=== PATIENT | male | born 1975 | race Two or more races ===

== ENCOUNTER 2018-12-30 09:42 | Emergency (ER) | payer BC ==
[~2018-12-30] VITALS: Ht 172.7 cm; Wt 101.2 kg
--- OUTSIDE RECORDS SUMMARY | 2018-12-30 09:45 | XMS REPORT | Clinical Summary ---
Author Author [facility] Organization [facility] Address Unknown Phone Unavailable Care Team Providers Care [employer] Coordinator Name Role Phone Karly Carrillo MD PCP Allergies No Known Allergies Medications End Date Status Medication Sig Dispensed Refills Start Date 04/29/2018 ergocalciferol (VITAMIN Take 1 4 capsule 2 D2) 50,000 unit capsule capsule 8 (50,000 Units total) by mouth once a week for 12 doses. Active Problems Not on file Encounters Care Team Description Date Type Specialty Karly Carrillo MD 02/10/2018 Orders Only Internal Medicine Karly Carrillo MD Annual physical exam 02/07/2018 Lab Lab Karly Carrillo MD Annual physical exam (Primary Dx) 02/07/2018 Office Visit Internal Medicine after 12/29/2017 Family History Medical History Relation Name Comments Heart disease Father Avarachan Diabetes Mother Zulma Hypertension Mother Zulma Relation Name Status Comments Father Elisabet Mother Zulma Social History Date Tobacco Use Types Packs/Day Years Used Never Smoker Smokeless Tobacco: Never Used Tobacco Cessation: Counseling Given: No Alcohol Use Drinks/Week oz/Week Comments Yes 3-4 Glasses per week of wine Sex Assigned at Date Recorded Not on file Industry Job Start Date Occupation Not on file Not on file Not on file Travel End Travel History Travel Start No recent travel history available. Last Filed Vital Signs Time Taken Vital Sign Reading 02/07/2018 10:29 AM CDT Blood Pressure 104/69 02/07/2018 10:29 AM CDT Pulse 69 02/07/2018 10:29 AM CDT Temperature 36.6 C (97.9 F) 02/07/2018 10:29 AM CDT Respiratory Rate 16 02/07/2018 10:29 AM CDT Oxygen Saturation 98% - Inhaled Oxygen - Concentration 02/07/2018 10:29 AM CDT Weight 103 kg (227 lb) 02/07/2018 10:29 AM CDT Height 172.7 cm (5' 8") 02/07/2018 10:29 AM CDT Body Mass Index 34.52 Plan of Treatment Health Maintenance Due Date Last Done Comments INFLUENZA VACCINE 02/26/2019 Procedures Comments Procedure Name Priority Date/Time Associated Diagnosis VITAMIN B12 AND FOLATE Routine 02/07/2018 Annual physical exam 11:49 AM CDT MAGNESIUM LEVEL Routine 02/07/2018 Annual physical exam 11:49 AM CDT VITAMIN D 25 HYDROXY Routine 02/07/2018 Annual physical exam LEVEL 11:49 AM CDT HEMOGLOBIN A1C Routine 02/07/2018 Annual physical exam 11:49 AM CDT LIPID PANEL Routine 02/07/2018 Annual physical exam 11:49 AM CDT T4, FREE Routine 02/07/2018 Annual physical exam 11:49 AM CDT THYROID STIMULATING Routine 02/07/2018 Annual physical exam HORMONE 11:49 AM CDT CBC WITH PLATELET AND Routine 02/07/2018 Annual physical exam DIFFERENTIAL 11:49 AM CDT COMPREHENSIVE METABOLIC Routine 02/07/2018 Annual physical exam PANEL 11:49 AM CDT ECG 12-LEAD Routine 02/07/2018 Annual physical exam 10:43 AM CDT after 12/29/2017 Results * Vitamin B12 and Folate (02/07/2018 11:49 AM CDT) [facility] Vitamin B12 341 200 - 1,100 pg/mL [facility] Comment: DIAGNOSTICS Please Note: Although the [place] reference range for vitamin B12 is 200-1100 pg/mL, it has been reported that between 5 and 10% of patients with values between 200 and 400 pg/mL may experience neuropsychiatric and hematologic abnormalities due to occult B12 deficiency; less than 1% of patients with values above 400 pg/mL will have symptoms. Folate 12.7 ng/mL [facility] Comment: DIAGNOSTICS [place] Reference Range Low: <3.4 Borderline:3.4-5.4 Normal:>5.4 Specimen Blood Resulting Agency Comment Performing Organization Information: Site ID: CAR Name: [facility] Address: [address] [place] [phone] Director: Elsa Coelho Performing Organization Address [facility] Phone Number [facility] [address] [address] * Vitamin D 25 hydroxy level (02/07/2018 11:49 AM CDT) Pathologist [facility] Vitamin D, 28 (L) 30 - 100 ng/mL [facility] 25-hydroxy Comment: DIAGNOSTICS Vitamin D [place] Status 25-OH Vitamin D: Deficiency: <20 ng/mL Insufficiency: 20 - 29 ng/mL Optimal: > or=30 ng/mL For 25-OH Vitamin D testing on patients on D2-supplementation and patients for whom quantitation of D2 and D3 fractions is required, the QuestAssureD(TM) 25-OH VIT D, (D2,D3), LC/MS/MS is recommended: order code 88416 (patients >2yrs). For more information on this test, go to: http://education.[employer].StyleUp/faq/BSN665 (This link is being provided for informational/educational purposes only.) Specimen Blood Resulting Agency Comment Performing Organization Information: Site ID: CAR Name: [facility] Address: [address] [place] [phone] Director: Elsa Coelho Performing Organization Address [facility] Phone Number [facility] [address] [address] * CBC with platelet and differential (02/07/2018 11:49 AM CDT) [facility] WBC 5.9 3.8 - 10.8 [facility] Thousand/uL [facility] [place] RBC 5.08 4.20 - 5.80 [facility] Million/uL DIAGNOSTICS [place] HGB 15.6 13.2 - 17.1 g/dL [employer] [facility] HCT 46.3 38.5 - 50.0 % [facility] MCV 91.1 80.0 - 100.0 fL [facility] MCH 30.7 27.0 - 33.0 pg [employer] [facility] MCHC 33.7 32.0 - 36.0 g/dL [employer] [place] RDW 12.5 11.0 - 15.0 % [employer] [facility] Platelet count 239 140 - 400 [facility] Thousand/uL [facility] MPV 10.6 7.5 - 12.5 fL [facility]NOSTICS [place] Neutrophils, 2,820 1,500 - 7,800 [facility] absolute cells/uL DIAGNOSTICS [place] Lymphocytes, 2,331 850 - 3,900 cells/uL [facility] absolute [facility]AGNOSTICS [place] Monocytes, 555 200 - 950 cells/uL [facility] absolute [facility]STICS [place] Eosinophils, 153 15 - 500 cells/uL [facility] absolute [facility]STICS [place] Basophils, 41 0 - 200 cells/uL [facility] absolute DIAGNOSTICS [place] Neutrophils 47.8 % [employer] [facility] Lymphocytes 39.5 % [employer] [employer] [place] Monocytes 9.4 % [facility] [place] Eosinophils 2.6 % [employer] [place] Basophils + RC 0.7 % [employer] [place] Specimen Blood Resulting Agency Comment Performing Organization Information: Site ID: RGA Name: [facility] Address: [address] [place] [phone] Director: Elsa Coelho Performing Organization Address [facility] [place] [address] * Thyroid stimulating hormone (02/07/2018 11:49 AM CDT) Pathologist [facility] TSH 1.40 0.40 - 4.50 mIU/L [facility] [place] Specimen Blood Resulting Agency Comment Performing Organization Information: Site ID: A Name: [facility] Address: [address] [place] [phone] Director: Elsa Coelho Performing Organization Address [facility] [place] [address] * T4, free (02/07/2018 11:49 AM CDT) Pathologist [facility] T4, free 1.2 0.8 - 1.8 ng/dL [employer] [place] Specimen Blood Resulting Agency Comment Performing Organization Information: Site ID: RGA Name: [facility] Address: [address] [place] [phone] Director: Elsa Coelho Performing Organization Address [facility] [place] [address] * Magnesium level (02/07/2018 11:49 AM CDT) Magnesium 2.0 1.5 - 2.5 mg/dL [facility] Specimen Blood Resulting Agency Comment Performing Organization Information: Site ID: CAR Name: [facility] Address: [address] [place] [phone] Director: Elsa Coelho Performing Organization Address [facility] [place] [address] * Hemoglobin A1c (02/07/2018 11:49 AM CDT) Hemoglobin A1C 6.4 (H) <5.7 % of total Hgb [facility] Comment: DIAGNOSTICS For someone without known [place] diabetes, a hemoglobin A1c value between 5.7% and 6.4% is consistent with prediabetes and should be confirmed with a follow-up test. For someone with known diabetes, a value <7% indicates that their diabetes is well controlled. A1c targets should be individualized based on duration of diabetes, age, comorbid conditions, and other considerations. This assay result is consistent with an increased risk of diabetes. Currently, no consensus exists regarding use of hemoglobin A1c for diagnosis of diabetes for children. Specimen Blood Resulting Agency Comment Performing Organization Information: Site ID: CAR Name: [facility] Address: [address] [place] [phone] Director: Elsa Coelho Performing Organization Address [facility] [place] [address] * Lipid panel (02/07/2018 11:49 AM CDT) Cholesterol, 241 (H) <200 mg/dL [facility] DIAGNOSTICS [place] HDL cholesterol 62 >40 mg/dL [facility] [place] Triglycerides 196 (H) <150 mg/dL [facility] [place] LDL cholesterol 145 (H) mg/dL (calc) [facility] calculated Comment: DIAGNOSTICS Reference range: <100 [place] Desirable range <100 mg/dL for primary prevention; <70 mg/dL for patients with CHD or diabetic patients with > or=2 CHD risk factors. LDL-C is now calculated using the Helder-Patricio calculation, which is a validated novel method providing better accuracy than the Friedewald equation in the estimation of LDL-C. Helder SS et al. JIM. 2013;310(19): 6485-7677 (http://education.[employer] Motion.StyleUp/faq/HGF565) Cholesterol/HDL 3.9 <5.0 (calc) [facility] ratio DIAGNOSTICS [place] Non-HDL 179 (H) <130 mg/dL (calc) [facility] cholesterol Comment: DIAGNOSTICS For patients with diabetes [place] plus 1 major ASCVD risk factor, treating to a non-HDL-C goal of <100 mg/dL (LDL-C of <70 mg/dL) is considered a therapeutic option. Specimen Blood Resulting Agency Comment Performing Organization Information: Site ID: RGA Name: [facility] Address: [address] [place] [phone] Director: Elsa Coelho Performing Organization Address City/State/Zipcode Phone Number [facility] [place] [address] [place] [address] * Comprehensive metabolic panel (02/07/2018 11:49 AM CDT) Pathologist [facility] Glucose 103 (H) 65 - 99 mg/dL [facility] Comment: DIAGNOSTICS Fasting [place] reference interval For someone without known diabetes, a glucose value between 100 and 125 mg/dL is consistent with prediabetes and should be confirmed with a follow-up test. BUN, whole 13 7 - 25 mg/dL [facility] blood DIAGNOSTICS [place] Creatinine 0.93 0.60 - 1.35 mg/dL [facility] [place] EGFR Non-Afr. 102 > OR=60 [facility] [place] mL/min/1.73m2 DIAGNOSTICS [place] EGFR 119 > OR=60 [facility] [place] mL/min/1.73m2 [facility] BUN/creatinine NOT APPLICABLE 6 - 22 (calc) [facility] ratio DIAGNOSTICS [place] Sodium 140 135 - 146 mmol/L [facility] [place] Potassium 4.2 3.5 - 5.3 mmol/L [facility] [place] Chloride 103 98 - 110 mmol/L [facility] [place] CO2 30 20 - 31 mmol/L [facility] [place] Calcium 9.4 8.6 - 10.3 mg/dL [facility] [place] Protein 7.4 6.1 - 8.1 g/dL [facility] [place] Albumin, S 4.7 3.6 - 5.1 g/dL [facility] [place] Globulin, total 2.7 1.9 - 3.7 g/dL [facility] (calc) DIAGNOSTICS [place] Albumin/globuli 1.7 1.0 - 2.5 (calc) [facility] n ratio DIAGNOSTICS [place] Total bilirubin 0.8 0.2 - 1.2 mg/dL [facility] [place] Alkaline 60 40 - 115 U/L [facility] phosphatase DIAGNOSTICS [place] AST 50 (H) 10 - 40 U/L [facility] [place] ALT 122 (H) 9 - 46 U/L [facility] [place] Specimen Blood Resulting Agency Comment Performing Organization Information: Site ID: RGA Name: [facility] Address: [address] [place] [phone] Director: Elsa Coelho Performing Organization Address [facility] Phone Number [facility] [address] [address] * ECG 12 lead (02/07/2018 10:43 AM CDT) Ventricular 67 [facility] rate Atrial rate 67 [facility] MI interval 182 [facility] QRSD interval 90 [facility] QT interval 378 [facility] QTC interval 399 [facility] P axis 1 32 [facility] QRS axis 1 -5 [facility] T wave axis -5 [facility] EKG impression Normal sinus [facility] rhythm-Nonspecific T wave abnormality-Abnormal ECG-No previous ECGs available- Specimen Performing Organization Address [facility] Phone Number [facility] MUSE [address] [place] [address] after 12/29/2017 Advance Directives Patient has advance care planning documents on file. For more information, eduardo e contact: Jack Galaviz [address] [place] [address]
[2018-12-30] MEDS ORDERED: KETOROLAC TROMETHAMINE 30 MG/ML VIAL IV STA (10:04)
[2018-12-30] MEDS ORDERED: ASPIRIN 81 MG CHEW TAB PO ONE (10:15)
--- NOTE | 2018-12-30 10:38 | Diagnostic Imaging Report ---
Examination: Single AP view of the chest. COMPARISON: None. INDICATION: Chest tightness DISCUSSION: Lines/tubes: None. Lungs: The lungs are well inflated and clear. There is no evidence of pneumonia or pulmonary edema. Pleura: There is no pleural effusion or pneumothorax. Heart and mediastinum: The heart and the mediastinum are unremarkable. Bones and soft tissues: No acute bony abnormalities. IMPRESSION: 1. No acute cardiopulmonary abnormalities. Signed by: Dr. Edwardo Zapata M.D. on 12/30/2018 10:35 AM
[2018-12-30 10:45] LABS: BASOPHILS % 0.8 % (0.0-1.0); EOSINOPHILS # (AUTO) 0.1 (0.0-0.4); EOSINOPHILS % 2.2 % (0.0-6.0); HEMATOCRIT 45.7 % (38.2-49.6); HEMOGLOBIN 15.7 g/dL (14.0-18.0); LYMPHOCYTES # (AUTO) 1.8 (1.0-3.2); LYMPHOCYTES % 36.9 % (18.0-39.1); MEAN CORPUSCULAR HEMOGLOBIN 31.1 pg (28-32); MEAN CORPUSCULAR HGB CONC 34.4 g/dL (31-35); MEAN CORPUSCULAR VOLUME 90.5 fL (81-99); MONOCYTES # (AUTO) 0.5 (0.2-0.8); MONOCYTES % 10.1 % (4.4-11.3); NEUTROPHILS # (AUTO) 2.5 (2.1-6.9); NEUTROPHILS % 49.8 % (38.7-80.0); PLATELET COUNT 212 x10e3/uL (140-360); RED BLOOD COUNT 5.05 x10e6/uL (4.3-5.7); RED CELL DISTRIBUTION WIDTH 12.6 % (11.7-14.4)
[2018-12-30 10:50] LABS: INR 0.91; PROTHROMBIN TIME 12.7 seconds (11.9-14.5)
[2018-12-30 10:51] LABS: PARTIAL THROMBOPLASTIN TIME 28.8 seconds (23.8-35.5)
[2018-12-30 11:57] LABS: ALANINE AMINOTRANSFERASE 166 IU/L (0-55); ALBUMIN 4.5 g/dL (3.5-5.0); ALBUMIN/GLOBULIN RATIO 1.4 (0.8-2.0); ALKALINE PHOSPHATASE 59 IU/L (40-150); ANION GAP 13.7 mmol/L (8-16); BLOOD UREA NITROGEN 14 mg/dL (7-26); BUN/CREATININE RATIO 16 (6-25); CALCIUM 10.1 mg/dL (8.4-10.2); CARBON DIOXIDE 25 mmol/L (22-29); CHLORIDE 103 mmol/L (98-107); CREATINE KINASE 319 IU/L (30-200); EST GLOMERULAR FILTRATION RATE > 60 ML/MIN (60-); GLUCOSE 129 mg/dL (74-118); POTASSIUM 3.7 mmol/L (3.5-5.1); SODIUM 138 mmol/L (136-145)
== END 2018-12-30 12:21 | disposition home or self-care (01) ==
LOC: ER 09:42
DX: R07.89 Other chest pain (principal); R73.03 Prediabetes; Z79.84 Long term (current) use of oral hypoglycemic drugs; Z82.49 Family history of ischemic heart disease and other diseases of the circulatory system
CPT/HCPCS: 36415; 71045; 80053; 82550; 82553; 84484; 85025; 85610; 85730; 93005; 99284; J1885

== ENCOUNTER → 2019-01-16 | Outpatient (CLI) | payer BC | LOC: NM 09:16 | PROVIDERS: ATTEND Internal Medicine | DX: R07.9 Chest pain, unspecified (principal) | CPT/HCPCS: 78452; 93017; 93306; A9502 ==

== ENCOUNTER → 2019-01-23 | Outpatient (CLI) | payer BC ==
[~2019-01-23] MED LIST: IOPAMIDOL 370 MG/ML 200 ML INFUS..BTL INJ ONE; METOPROLOL TARTRATE INJ 1 MG/ML VIAL ONE; NITROGLYCERIN 0.4 MG SUBL ONE; SODIUM CHLORIDE 0.9% 100 ML 100 ML ONE
[2019-01-23 09:11] LABS: BLOOD UREA NITROGEN 17 mg/dL (7-26); BUN/CREATININE RATIO 16 (6-25); CREATININE, SERUM 1.06 mg/dL (0.72-1.25); EST GLOMERULAR FILTRATION RATE > 60 ML/MIN (60-)
--- NOTE | 2019-01-23 12:57 | Diagnostic Imaging Report ---
EXAM: CALCIUM SCORE AND CORONARY CTA INDICATION: ^[id number] ^1040 ^CHEST PAIN COMPARISON: None. TECHNIQUE: Multi-detector CT technology was employed (64 MDCT VoCare). Minimal slice thickness was performed following the intravenous administration of contrast material. The patient was premedicated with 2.5 mg i.v. metoprolol and 0.4 mg sublingual nitroglycerin for heart rate control and coronary dilation, respectively. IV CONTRAST: 100 mL of Isovue-370 ORAL CONTRAST: None COMPLICATIONS: None RADIATION DOSE: Total DLP: 1491.6 mGy*cm Estimated effective dose: (DLP x 0.015 x size factor) mSv CTDIvol has been reviewed. It is below the limits set by the Radiation Protocol Committee (RPC). For optimization of anatomic evaluation, multiplanar reconstruction, maximum intensity projections, and advanced 3-D off-line postprocessing were performed on a dedicated stand-alone workstation under the direct supervision of the interpreting physician. QUALITY: Excellent FINDINGS: CALCIUM SCORE: The observed Agatston Calcium Score of 0 is at percentile 25% for subjects of the same age and gender who are free of clinical cardiovascular disease and treated diabetes. The Agatston score for each vessel is as follows: LM: 0 LAD: 0 LCx: 0 RCA: 0 DISTRIBUTION OF THE CALCIFIED PLAQUES: No identifiable calcified plaques in the coronary arteries. CORONARY ANATOMY: There is normal origin of the coronary arteries. Left Main Coronary Artery: The left main is normal sized vessel that trifurcates into the LAD, ramus intermedius and circumflex. There is no evidence of atherosclerotic changes or stenotic disease. Left Anterior Descending Coronary Artery: The LAD is a normal size vessel that wraps around the apex. It gives rise to 2 acute diagonal branches. There is no evidence of atherosclerotic changes or stenotic disease. Ramus intermedius: The Ramus intermedius is a normal size vessel that extends along the lateral wall of the left ventricle. There is no evidence of atherosclerotic changes or stenotic disease. Left Circumflex Coronary Artery: The LCX is a normal size vessel, which is non-dominant. It gives rise to 2 obtuse marginal branches. There is no evidence of atherosclerotic changes or stenotic disease. Right Coronary Artery: The RCA is a normal size vessel, which is dominant. It gives rise to a conus branch, AV nelson branch, and 2 acute marginal branches. In its distal segment it bifurcates into the PDA and PV branch. There is no evidence of atherosclerotic changes or stenotic disease. CARDIAC MORPHOLOGY AND FUNCTION: The right and left atria and ventricles are morphologically normal. Small pericardial effusion. LIMITED CHEST: Limited views of the visualized chest show no abnormality within chest wall and mediastinum. No mediastinal lymphadenopathy. Linear scarring in the left lower lobe. The visualized portions of the ascending and descending thoracic aorta are of normal size. Indeterminate 3 mm focal round calcification between the medial aspect of the right hemidiaphragm and the base of the heart. LIMITED ABDOMEN: Diffuse hepatic steatosis. BONES: No acute osseous abnormalities. IMPRESSION: 1. Total Agatston Calcium Score: 0 that corresponds to percentile 25%. 2. Normal coronary anatomy. 3. No atherosclerotic changes or stenotic disease. CAD-CUCO: 0 Reference: http://c.DGSE.com/sites/scct.site-[email or web address]/resource/resmgr/Docs/JCCT_Guidelines_ AD_RADS.pdf 4. Small indeterminate calcification between the medial right hemidiaphragm and base of the right ventricle. Signed by: Dr. Gail Scott M.D. on 01/23/2019 12:53 PM
== END ==
LOC: CT 08:15
PROVIDERS: ATTEND Internal Medicine
DX: R07.9 Chest pain, unspecified (principal)
CPT/HCPCS: 36415; 75574; 82565; 84520; Q9967

== ENCOUNTER 2019-10-27 05:03 | Emergency (ER) | payer BC ==
[~2019-10-27] VITALS: Ht 172.7 cm; Wt 101.6 kg
--- OUTSIDE RECORDS SUMMARY | 2019-10-27 05:06 | XMS REPORT ---
[facility] Address Unknown Phone Unavailable Care Team Providers Care Roll Forming Machine Set Up Mechanic Name Role Phone Doug BARTHOLOMEW Unavailable Unavailable Jeovanny TUCKER Unavailable Unavailable Problems This patient has no known problems. Allergies, Adverse Reactions, Alerts This patient has no known allergies or adverse reactions. Medications This patient has no known medications. Results Test Description Test Time Test Comments Text Results Atomic Results Result Comments ECHO COMPLETE (ECHOCARDIOGRAM) 2019-02-04 19:19:00 [place] [address] Patient Name : TAY STARR MR #: [id number] : 1975 Age/Sex: 43/M Adm Physician : LEO BARTHOLOMEW MD Admit Date : 01/16/19 Location : [place] Room/Bed : REPORT: Myoview Stress Test DATE OF STUDY: 01/16/2019 10:07:00 PROCEDURE TITLE: Rest/stress single isotope SPECT imaging with exercise stress and gated SPECT imaging. DESCRIPTION OF THE PROCEDURE: The patient performed treadmill exercise using a Robby protocol, exercising for 8 minutes and 37 seconds to stage III and completing estimated workload of 10.1 metabolic equivalents (METs). The heart rate was 90 beats per minute at rest increased to 156 beats per minute during the regadenoson infusion. The rest blood pressure was 100/86 mmHg increased to 179/89 mmHg, which is a normal response. The resting electrocardiogram demonstrated normal sinus rhythm. There were no ST-segment changes suggestive of myocardial ischemia. Myocardial perfusion imaging was performed at rest following the injection of 11 mCi of tetrofosmin. At peak exercise, the patient was injected with 33 mCi of tetrofosmin. Gated post-stress tomographic imaging was performed. FINDINGS: The overall study is fair. Left ventricular cavity is noted to be normal size on the rest and stress studies. SPECT images demonstrate homogeneous tracer distribution throughout the myocardium. Gated SPECT imaging reveals normal myocardial thickening and wall motion. The left ventricular ejection fraction was calculated to be 59%. IMPRESSION: Myocardial perfusion imaging is normal. Overall left ventricular systolic function was normal without regional wall motion abnormalities. Lindsay Bowens MD ABS/QUANG /[id number] Signature Date Dictated By: LINDSAY BOWENS MD Transcribed By: QUANG on 02/04/19 <Electronically signed by LINDSAY BOWENS MD><<Signature on File>>02/26/19 1234 COPY TO: CTA CORONARY W or WO CALCIUM 2019-01-23 12:32:00 [place] [address] Patient Name: TAY STARR MR #: [id number] : 1975 Age/Sex: 43/M Req #: [id number] Adm Physician: Ordered by: LEO BARTHOLOMEW MD Report #: [id number] Location: CT Room/Bed: Procedure: [id number] CT/CTA CORONARY W or WO CALCIUM Exam Date: 01/23/19 Exam Time: 1040 REPORT STATUS: Signed EXAM: CALCIUM SCORE AND CORONARY CTA I NDICATION: [id number] CHEST PAIN COMPARISON: None. TECHNIQUE: Multi-detector CT technology was employed (64 MDCT Scary Mommy). Minimal slice thickness was performed following the intravenous administration of contrast material. The patient was premedicated with 2.5 mg i.v. metoprolol and 0.4 mg sublingual nitroglycerin for heart rate control and coronary dilation, respectively. IV CONTRAST: 100 mL of Isovue-370 ORAL CONTRAST: None COMPLICATIONS: None RADIATION DOSE: Total DLP: 1491.6 mGy*cm Estimated effective dose: (DLP x 0.015 x size factor) mSv CTDIvol has been reviewed. It is below the limits set by the Radiation Protocol Committee (RPC). For optimization of anatomic evaluation, multiplanar reconstruction, maximum intensity projections, and advanced 3-D off-line postprocessing were performed on a dedicated stand-alone workstation under the direct supervision of the interpreting physician. QUALITY: Excellent FINDINGS: CALCIUM SCORE: The observed Agatston Calcium Score of 0 is at percentile 25% for subjects of the same age and gender who are free of clinical cardiovascular disease and treated diabetes. The Agatston score for each vessel is as follows: LM: 0 LAD: 0 LCx: 0 RCA: 0 DISTRIBUTION OF THE CALCIFIED PLAQUES: No identifiable calcified plaques in the coronary arteries. CORONARY ANATOMY: There is normal origin of the coronary arteries. Left Main Coronary Artery: The left main is normal sized vessel that trifurcates into the LAD, ramus intermedius and circumflex. There is no evidence of atherosclerotic changes or stenotic disease. Left Anterior Descending Coronary Artery: The LAD is a normal size vessel that wraps around the apex. It gives rise to 2 acute diagonal branches. There is no evidence of atherosclerotic changes or stenotic disease. Ramus intermedius: The Ramus intermedius is a normal size vessel that extends along the lateral wall of the left ventricle. There is no evidence of atherosclerotic changes or stenotic disease. Left Circumflex Coronary Artery: The LCX is a normal size vessel, which is non-dominant. It gives rise to 2 obtuse marginal branches. There is no evidence of atherosclerotic changes or stenotic disease. Right Coronary Artery: The RCA is a normal size vessel, which is dominant. It gives rise to a conus branch, AV nelson branch, and 2 acute marginal branches. In its distal segment it bifurcates into the PDA and PV branch. There is no evidence of atherosclerotic changes or stenotic disease. CARDIAC MORPHOLOGY AND FUNCTION: The right and left atria and ventricles are morphologically normal. Small pericardial effusion. LIMITED CHEST: Limited views of the visualized chest show no abnormality within chest wall and mediastinum. No mediastinal lymphadenopathy. Linear scarring in the left lower lobe. The visualized portions of the ascending and descending thoracic aorta are of normal size. Indeterminate 3 mm focal round calcification between the medial aspect of the right hemidiaphragm and the base of the heart. LIMITED ABDOMEN: Diffuse hepatic steatosis. BONES: No acute osseous abnormalities. IMPRESSION: 1. Total Agatston Calcium Score: 0 that co rresponds to percentile 25%. 2. Normal coronary anatomy. 3. No atherosclerotic changes or stenotic disease. CAD-CUCO: 0 Reference: [email or web address] 4. Small indeterminate calcification between the medial right hemidiaphragm and base of the right ventricle. Signed by: Dr. Dionte Royal M.D. on 01/23/2019 12:53 PM Dictated By: DIONTE ROYAL MD 1253 Transcribed By: OMEGA on 01/23/19 1253 COPY TO: LEO BARTHOLOMEW MD CHEST SINGLE (PORTABLE) 2018-12-30 10:34:00 [place] [address] Patient Name: TAY STARR MR #: [id number] : 1975 Age/Sex: 43/M Req #: [id number] Adm Physician: Ordered by: CORA BALLESTEROS DEFENSE TRAVEL ADMINISTRATOR Report #: [id number] Location: ER Room/Bed: Procedure: [id number] DX/CHEST SINGLE (PORTABLE) Exam Date: 12/30/18 Exam Time: 1010 REPORT STATUS: Signed Examination: Single AP view of the chest. C OMPARISON: None. INDICATION: Chest tightness DISCUSSION: Lines/tubes: None. Lungs: The lungs are well inflated and clear. There is no evidence of pneumonia or pulmonary edema. Pleura: There is no pleural effusion or pneumothorax. Heart and mediastinum: The heart and the mediastinum are unremarkable. Bones and soft tissues: No acute bony abnormalities. IMPRESSION: 1. No acute cardiopulmonary abnormalities. Signed by: Dr. Norberto Aquino M.D. on 12/30/2018 10:35 AM Dictated By: NORBERTO AQUINO MD 1035 Transcribed By: OMEGA on 12/30/18 1035 COPY TO: CORA BALLESTEROS NP
[2019-10-27] MEDS ORDERED: ACETAMINOPHEN 325 MG TAB ONE (05:12)
[2019-10-27] MEDS ORDERED: ACETAMINOPHEN 325 MG TAB PO ONE (05:15)
[2019-10-27 06:14] VITALS: BP 105/63
--- NOTE | 2019-10-27 06:25 | Diagnostic Imaging Report ---
CT chest without enhancement CPT code: 08125 INDICATION: Increased cough, shortness of breath, fever, positive COVID-19 diagnosis 10/21/2019 TECHNIQUE: Thin collimation axial images obtained from the thoracic inlet to the level of the diaphragm without intravenous contrast. Dose reduction techniques used: Automated exposure control, adjustment of the mAs and/or kVp according to patient size, standardized low-dose protocol, and/or iterative reconstruction technique. RADIATION DOSE: Total DLP: 476.84 mGy*cm Estimated effective dose: (DLP x 0.015 x size factor) mSv CTDIvol has been reviewed. It is below the limits set by the Radiation Protocol Committee (RPC). COMPARISON: Coronary CTA 01/23/2019. CHEST FINDINGS: Lymph nodes: No enlarged axillary or supraclavicular lymph nodes. Prevascular lymph nodes have increased in size and measures 7 mm in short axis. Right paratracheal lymph node measures 10 mm in short axis. No enlarged subcarinal or hilar lymph nodes cannot intravenous contrast. Thyroid: Visualized portions are normal. Mediastinum: The heart is normal in size. No pericardial effusion. The esophagus is normal. Lungs: Right: Multifocal predominantly peripheral peripheral nodular groundglass airspace opacities in the upper lobe. More confluent groundglass opacities in the posterior lower lobe. Left: Multifocal somewhat nodular groundglass opacities in the upper and lower lobes, predominantly peripheral. Pleura: No pleural effusion or pleural thickening. ABDOMEN FINDINGS: Significant steatosis, similar to previous exam. No mass or lymphadenopathy in the upper abdomen. Bones: Mild degenerative changes of the spine. IMPRESSION: 1. Multifocal ground glass opacities suggestive of atypical (viral) pneumonia. Mild reactive mediastinal lymphadenopathy. 2. Significant steatosis. Signed by: Dr. Tanna Alfred MD on 10/27/2019 6:21 AM
== END 2019-10-27 06:42 | disposition home or self-care (01) ==
LOC: ER 05:03
DX: R05 Cough (principal); J04.10 Acute tracheitis without obstruction; J06.9 Acute upper respiratory infection, unspecified
CPT/HCPCS: 71250; 99283

== ENCOUNTER → 2020-02-26 | Outpatient (CLI) | payer BC | LOC: LAB 11:55 | PROVIDERS: ATTEND Family Medicine | DX: Z00.00 Encounter for general adult medical examination without abnormal findings (principal); E66.9 Obesity, unspecified | CPT/HCPCS: 83036; 84152; 84403 ==

== ENCOUNTER → 2020-03-04 | Outpatient (CLI) | payer BC ==
[2020-03-04 11:56] LABS: BASOPHILS # (AUTO) 0.1 (0.0-0.1); BASOPHILS % 0.9 % (0.0-1.0); EOSINOPHILS # (AUTO) 0.1 (0.0-0.4); EOSINOPHILS % 2.5 % (0.0-6.0); HEMATOCRIT 43.7 % (38.2-49.6); HEMOGLOBIN 14.7 g/dL (14.0-18.0); LYMPHOCYTES # (AUTO) 2.3 (1.0-3.2); LYMPHOCYTES % 40.4 % (18.0-39.1); MEAN CORPUSCULAR HEMOGLOBIN 29.8 pg (28-32); MEAN CORPUSCULAR HGB CONC 33.6 g/dL (31-35); MEAN CORPUSCULAR VOLUME 88.5 fL (81-99); MONOCYTES # (AUTO) 0.5 (0.2-0.8); MONOCYTES % 9.1 % (4.4-11.3); NEUTROPHILS # (AUTO) 2.7 (2.1-6.9); NEUTROPHILS % 46.7 % (38.7-80.0); PLATELET COUNT 244 x10e3/uL (140-360); RED BLOOD COUNT 4.94 x10e6/uL (4.3-5.7); RED CELL DISTRIBUTION WIDTH 12.6 % (11.7-14.4)
[2020-03-04 12:26] LABS: ALANINE AMINOTRANSFERASE 99 IU/L (0-55); ALBUMIN 4.1 g/dL (3.5-5.0); ALBUMIN/GLOBULIN RATIO 1.2 (0.8-2.0); ALKALINE PHOSPHATASE 59 IU/L (40-150); BLOOD UREA NITROGEN 11 mg/dL (7-26); BUN/CREATININE RATIO 11 (6-25); CALCIUM 9.2 mg/dL (8.4-10.2); CARBON DIOXIDE 23 mmol/L (22-29); CHLORIDE 107 mmol/L (98-107); CHOL/HDL RATIO 4.7 (3.9-4.7); CHOLESTEROL 227 MD/DL (0-199); CREATININE, SERUM 0.97 mg/dL (0.72-1.25); EST GLOMERULAR FILTRATION RATE > 60 ML/MIN (60-); GLUCOSE 102 mg/dL (74-118); HDL CHOLESTEROL 48 MG/DL (40-60); LDL CHOLESTEROL 126 MG/DL (60-130); SODIUM 137 mmol/L (136-145); TRIGLYCERIDES 264 MG/DL (0-149)
[2020-03-04 13:54] LABS: THYROID STIMULATING HORMONE 0.868 uIU/mL (0.350-4.940)
== END ==
LOC: LAB 11:41
PROVIDERS: ATTEND Family Medicine
DX: Z00.00 Encounter for general adult medical examination without abnormal findings (principal)
CPT/HCPCS: 36415; 80053; 80061; 84436; 84443; 84480; 85025

== ENCOUNTER → 2020-04-12 | Outpatient (CLI) | payer BC ==
[~2020-04-12] MED LIST changes: -METOPROLOL TARTRATE INJ 1 MG/ML VIAL ONE; -NITROGLYCERIN 0.4 MG SUBL ONE; -SODIUM CHLORIDE 0.9% 100 ML 100 ML ONE; +SODIUM CHLORIDE 0.9% 50ML 50 ML ONE
[2020-04-12 17:12] LABS: BLOOD UREA NITROGEN 11 mg/dL (7-26); BUN/CREATININE RATIO 10 (6-25); CREATININE, SERUM 1.06 mg/dL (0.72-1.25); EST GLOMERULAR FILTRATION RATE > 60 ML/MIN (60-)
--- NOTE | 2020-04-12 17:57 | Diagnostic Imaging Report ---
EXAMINATION: CT of the abdomen and pelvis with contrast. TECHNIQUE: Spiral CT images of the abdomen and pelvis were performed from the lung bases to the lesser trochanters after the intravenous administration of 100 cc of Isovue 370 and the oral administration of water. Coronal and sagittal reformatted images were obtained. COMPARISON: None. CLINICAL HISTORY:Dark stools for one month, general abdominal pain DISCUSSION: ABDOMEN/PELVIS: LOWER THORAX:Lung bases are clear. HEPATOBILIARY: Diffusely decreased attenuation of the hepatic parenchyma compared to the spleen consistent with steatosis. Focal fatty sparing surrounding the gallbladder. 3 mm calcified granuloma in hepatic segment IV at the dome (series 2, image 12). No other focal lesions. No intra or extrahepatic biliary ductal dilation. GALLBLADDER: No radio-opaque stones or sludge. No wall thickening. SPLEEN: No splenomegaly. PANCREAS: No focal masses or ductal dilatation. ADRENALS: No adrenal nodules. KIDNEYS/URETERS: 1-2 mm nonobstructing calculus in the left interpolar region (series 2, image 37 and coronal image 70). No other renal or ureteral calculi, hydronephrosis or obstruction. PELVIC ORGANS/BLADDER: Bladder is unremarkable, without focal lesions or wall thickening. Prostate is unremarkable. PERITONEUM/RETROPERITONEUM: No free air or fluid. LYMPH NODES: No intra-abdominal, retroperitoneal, pelvic or inguinal lymphadenopathy. VESSELS: The celiac trunk,superior and inferior mesenteric and bilateral renal arteries are patent The portal, superior mesenteric and splenic veins are patent. GI TRACT: No bowel dilation or evidence of obstruction. No pericolonic inflammatory changes. Appendix is well identified and normal in caliber. Stomach is unremarkable. No wall thickening or focal intraluminal masses. BONES AND SOFT TISSUE: No aggressive lytic or suspicious focal sclerotic lesions. Mild degenerative changes in the sacroiliac joints, right greater than left, with presence of osteophytes. Nonaggressive appearing 3-4 mm focal sclerotic lesions in bilateral femoral heads, left acetabulum and left ischium (series 2, images 82, 79, 92, 86, 75), likely represent bone islands. Soft tissues are grossly unremarkable. IMPRESSION: 1. No acute abdominal pelvic abnormalities. 2. No bowel dilation, wall thickening or evidence of obstruction. No focal intraluminal masses. 3. Diffuse hepatic steatosis. 4. 1-2 mm nonobstructing calculus in the left interpolar region. No ureteral calculi, hydronephrosis or obstruction. Signed by: Dr. Alfie Bell M.D. on 04/12/2020 5:54 PM
== END ==
LOC: CT 16:33
PROVIDERS: ATTEND Family Medicine
DX: R10.84 Generalized abdominal pain (principal)
CPT/HCPCS: 36415; 74177; 82565; 84520; Q9967

== ENCOUNTER → 2020-04-13 | Outpatient (CLI) | payer BC ==
[2020-04-13 09:57] LABS: ALANINE AMINOTRANSFERASE 107 IU/L (0-55); ALBUMIN 4.7 g/dL (3.5-5.0); ALBUMIN/GLOBULIN RATIO 1.6 (0.8-2.0); ALKALINE PHOSPHATASE 88 IU/L (40-150); ANION GAP 14.5 mmol/L (8-16); BLOOD UREA NITROGEN 14 mg/dL (7-26); BUN/CREATININE RATIO 11 (6-25); CALCIUM 8.9 mg/dL (8.4-10.2); CARBON DIOXIDE 26 mmol/L (22-29); CHLORIDE 100 mmol/L (98-107); CREATININE, SERUM 1.29 mg/dL (0.72-1.25); EST GLOMERULAR FILTRATION RATE > 60 ML/MIN (60-); GLUCOSE 291 mg/dL (74-118); LIPASE 34 U/L (8-78); POTASSIUM 4.5 mmol/L (3.5-5.1); SODIUM 136 mmol/L (136-145)
== END ==
LOC: LAB 08:56
PROVIDERS: ATTEND Family Medicine
DX: R10.84 Generalized abdominal pain (principal); K21.0 Gastro-esophageal reflux disease with esophagitis
CPT/HCPCS: 36415; 80053; 83690

== ENCOUNTER → 2020-04-21 | Outpatient (CLI) | payer BC ==
--- NOTE | 2020-04-21 14:39 | Diagnostic Imaging Report ---
Examination: MRI SPINE LUMBAR WO History: Mid and low back pain. Comparison studies: None Technique: Sagittal, coronal and axial T2 , sagittal T1 and STIR; axial spin density oblique. Findings: Number of lumbar vertebral bodies: Five. Alignment: Normal lordosis. No scoliosis. Soft tissues: No T2 hyperintense inflammatory changes. Posterior paraspinal soft tissues and muscles: No abnormality. Lower thoracic cord: Normal in signal and morphology. The tip of the conus is at T12-L1. Cauda equina: No masses. No arachnoiditis. Vertebrae: No fractures, infection or neoplasm. Degenerative changes: L1-L2: No abnormalities. L2-L3: Mild diffuse disc bulge. No foraminal or canal stenosis. L3-L4: Diffuse disc bulge and bilateral facet arthropathy resultant mild bilateral neural foraminal narrowing. No canal stenosis. L4-L5: Diffuse disc bulge and bilateral facet arthropathy result in mild right and moderate left neural foraminal narrowing. No canal stenosis. L5-S1: Diffuse disc bulge. No foraminal or canal stenosis. Left central annular fissure. IMPRESSION: Degenerative changes from L2-L3 through L5-S1 with moderate left foraminal narrowing L4-L5. No canal stenosis. Signed by: Dr. Angela Dao M.D. on 04/21/2020 2:35 PM
--- NOTE | 2020-04-21 14:40 | Diagnostic Imaging Report ---
Examination: MRI SPINE THORACIC WO History: Nonradiating mid back pain. Comparison studies: None Technique: Sagittal T1 and STIR; axial, sagittal and coronal T2 Intravenous contrast: None. Findings: Alignment: Normal kyphosis. No scoliosis. Thoracic cord: Normal in signal and morphology. The tip of the conus is at T12-L1. Soft tissues: No T2 hyperintense inflammatory changes. Paraspinal muscles: Preserved. No volume loss. Vertebrae: No compression fractures, infection or neoplasm. Degenerative changes: No disc herniation or bulge or canal or foraminal stenosis. IMPRESSION: No abnormalities. Signed by: Dr. Angela Dao M.D. on 04/21/2020 2:37 PM
== END ==
LOC: MRI 12:44
PROVIDERS: ATTEND Family Medicine
DX: M54.14 Radiculopathy, thoracic region (principal); M54.16 Radiculopathy, lumbar region
CPT/HCPCS: 72146; 72148

== ENCOUNTER → 2020-04-27 | Outpatient (CLI) | payer BC ==
--- NOTE | 2020-04-27 15:43 | Diagnostic Imaging Report ---
EXAM: Right upper quadrant abdominal ultrasound INDICATION: Right upper quadrant pain COMPARISON: CT abdomen and pelvis of 04/12/2020 TECHNIQUE: Transverse and longitudinal images of the right upper quadrant abdomen were obtained FINDINGS: Liver: Size: 15.5 cm in the right midclavicular line, normal Appearance: Increased echogenicity, smooth contour Mass: No focal masses Gallbladder: No gallbladder distension, pericholecystic fluid, wall thickening, stone, or reported sonographic Lovett's sign. Gallbladder wall measures 2 mm. Bile Ducts: Intrahepatic Ducts: No dilatation Extrahepatic Ducts: Common bile duct measures 3 mm Pancreas: Visualized portions of the pancreatic head, neck and proximal body are normal. Kidney: The right kidney measures 11.2 cm without evidence of hydronephrosis or stone. Vessels: Aorta: Visualized portions are normal Inferior Vena Cava: Visualized portions are normal Main Portal Vein: 0.7 cm, normal size with hepatopetal flow. Free Fluid: No ascites or pleural effusion IMPRESSION: No sonographic evidence of cholelithiasis or cholecystitis. Diffuse hepatic steatosis. Signed by: Farhana Montes MD on 04/27/2020 3:40 PM
== END ==
LOC: US 14:45
PROVIDERS: ATTEND Family Medicine
DX: R10.11 Right upper quadrant pain (principal)
CPT/HCPCS: 76705

== ENCOUNTER → 2020-08-03 | Outpatient (CLI) | payer OTHER ==
[~2020-08-03] MED LIST changes: +COVID-19 VACC, MRNA(MODERNA)/PF 100 MCG/0.5 ML VIAL IM ONE; -IOPAMIDOL 370 MG/ML 200 ML INFUS..BTL INJ ONE; -SODIUM CHLORIDE 0.9% 50ML 50 ML ONE
== END ==
LOC: VACCPMC 09:00
DX: Z23 Encounter for immunization (principal); Z20.822 Contact with and (suspected) exposure to COVID-19

== ENCOUNTER → 2020-09-01 | Outpatient (CLI) | payer OTHER | END | DRG 951 | LOC: VACCPMC 11:10 | DX: Z23 Encounter for immunization (principal); Z20.822 Contact with and (suspected) exposure to COVID-19 | CPT/HCPCS: 0012A; 91301 ==

== ENCOUNTER → 2020-11-25 | Outpatient (CLI) | payer OTHER ==
[2020-11-25 13:58] LABS: BASOPHILS # (AUTO) 0.1 (0.0-0.1); BASOPHILS % 1.1 % (0.0-1.0); EOSINOPHILS # (AUTO) 0.2 (0.0-0.4); EOSINOPHILS % 3.8 % (0.0-6.0); HEMATOCRIT 43.8 % (38.2-49.6); HEMOGLOBIN 15.1 g/dL (14.0-18.0); LYMPHOCYTES # (AUTO) 2.4 (1.0-3.2); LYMPHOCYTES % 43.9 % (18.0-39.1); MEAN CORPUSCULAR HEMOGLOBIN 31.1 pg (28-32); MEAN CORPUSCULAR HGB CONC 34.5 g/dL (31-35); MEAN CORPUSCULAR VOLUME 90.1 fL (81-99); MONOCYTES # (AUTO) 0.5 (0.2-0.8); MONOCYTES % 9.8 % (4.4-11.3); NEUTROPHILS # (AUTO) 2.3 (2.1-6.9); NEUTROPHILS % 41.2 % (38.7-80.0); PLATELET COUNT 244 x10e3/uL (140-360); RED BLOOD COUNT 4.86 x10e6/uL (4.3-5.7); RED CELL DISTRIBUTION WIDTH 12.8 % (11.7-14.4)
[2020-11-25 14:19] LABS: ALANINE AMINOTRANSFERASE 84 IU/L (0-55); ALBUMIN 4.6 g/dL (3.5-5.0); ALBUMIN/GLOBULIN RATIO 1.3 (0.8-2.0); ALKALINE PHOSPHATASE 71 IU/L (40-150); ANION GAP 15.1 mmol/L (8-16); BLOOD UREA NITROGEN 13 mg/dL (7-26); BUN/CREATININE RATIO 13 (6-25); CALCIUM 9.6 mg/dL (8.4-10.2); CARBON DIOXIDE 28 mmol/L (22-29); CHLORIDE 103 mmol/L (98-107); CHOL/HDL RATIO 5.4 (3.9-4.7); CHOLESTEROL 296 MD/DL (0-199); CREATININE, SERUM 0.98 mg/dL (0.72-1.25); EST GLOMERULAR FILTRATION RATE > 60 ML/MIN (60-); GLUCOSE 104 mg/dL (74-118); HDL CHOLESTEROL 55 MG/DL (40-60); LDL CHOLESTEROL 198 MG/DL (60-130); POTASSIUM 4.1 mmol/L (3.5-5.1); SODIUM 142 mmol/L (136-145); TRIGLYCERIDES 213 MG/DL (0-149)
== END ==
LOC: LAB 13:43
PROVIDERS: ATTEND Family Medicine
DX: E88.81 Metabolic syndrome and other insulin resistance (principal); R53.83 Other fatigue; E66.9 Obesity, unspecified
CPT/HCPCS: 36415; 80053; 80061; 83036; 83525; 85025

== ENCOUNTER → 2021-05-25 | Outpatient (CLI) | payer OTHER | LOC: VACCPMC 09:00 | DX: Z23 Encounter for immunization (principal); Z20.822 Contact with and (suspected) exposure to COVID-19 ==

== ENCOUNTER → 2021-12-08 | Outpatient (CLI) | payer BC ==
[2021-12-08 15:05] LABS: BASOPHILS # (AUTO) 0.1 (0.0-0.1); BASOPHILS % 0.9 % (0.0-1.0); EOSINOPHILS # (AUTO) 0.2 (0.0-0.4); EOSINOPHILS % 3.1 % (0.0-6.0); HEMATOCRIT 47.3 % (38.2-49.6); LYMPHOCYTES # (AUTO) 2.2 (1.0-3.2); LYMPHOCYTES % 32.2 % (18.0-39.1); MEAN CORPUSCULAR HEMOGLOBIN 31.1 pg (28-32); MEAN CORPUSCULAR HGB CONC 33.8 g/dL (31-35); MEAN CORPUSCULAR VOLUME 91.8 fL (81-99); MONOCYTES # (AUTO) 0.7 (0.2-0.8); MONOCYTES % 9.5 % (4.4-11.3); NEUTROPHILS # (AUTO) 3.7 (2.1-6.9); PLATELET COUNT 218 x10e3/uL (140-360); RED BLOOD COUNT 5.15 x10e6/uL (4.3-5.7); RED CELL DISTRIBUTION WIDTH 12.7 % (11.7-14.4)
[2021-12-08 15:25] LABS: ALBUMIN 4.2 g/dL (3.5-5.0); ALBUMIN/GLOBULIN RATIO 1.2 (0.8-2.0); ANION GAP 15.8 mmol/L (8-16); CALCIUM 8.9 mg/dL (8.4-10.2); CHOL/HDL RATIO 3.7 (3.9-4.7); CREATININE, SERUM 1.04 mg/dL (0.72-1.25); POTASSIUM 3.8 mmol/L (3.5-5.1)
== END ==
LOC: LAB 14:08
PROVIDERS: ATTEND Family Medicine
DX: E11.65 Type 2 diabetes mellitus with hyperglycemia (principal); E11.69 Type 2 diabetes mellitus with other specified complication; E78.5 Hyperlipidemia, unspecified
CPT/HCPCS: 36415; 80053; 80061; 83036; 85025

== ENCOUNTER → 2022-03-21 | Outpatient (CLI) | payer BC | LOC: US 08:36 | PROVIDERS: ATTEND Family Medicine | DX: K75.81 Nonalcoholic steatohepatitis (NASH) (principal) | CPT/HCPCS: 76705 ==